=== PATIENT | female | born 1960 | race Hispanic/Latino ===

== ENCOUNTER 2022-02-20 16:28 | Inpatient (IN) | payer OTHER ==
[~2022-02-20] VITALS: Ht 152.4 cm; Wt 69.0 kg
[2022-02-20] MEDS ORDERED: KETOROLAC 15MG/ML VIAL (15MG/ML) IV ONE (17:00)
[2022-02-20] MEDS ORDERED: 0.9%NACL 1000ML 1,000 ML IV ONE (17:00)
[2022-02-20] MEDS ORDERED: ACETAMINOPHEN 500 MG TABLET PO ONE (17:00)
[2022-02-20 17:02] LABS: APPEARANCE,URINE CLEAR (CLEAR); BILIRUBIN,URINE SMALL (NEGATIVE); COLOR,URINE YELLOW (YELLOW); GLUCOSE, URINE (UA) NEGATIVE (NEGATIVE); KETONES,URINE 5 mg/dL (NEGATIVE); LEUKOCYTE ESTERASE ,URINE NEGATIVE (NEGATIVE); NITRATE,URINE NEGATIVE (NEGATIVE); OCCULT BLOOD,URINE MODERATE (NEGATIVE); PROTEIN,URINE 100 mg/dL (NEGATIVE)
[2022-02-20 17:15] LABS: BASOPHILS % (AUTO) 0.3 % (0.0-5.0); EOSINOPHILS % (AUTO) 0.1 % (0.0-8.0); HEMATOCRIT 32.1 % (36-48); LYMPHOCYTES % (AUTO) 5.8 % (21.0-51.0); MEAN CORPUSCULAR HEMOGLOBIN 24.4 pg (27.0-33.0); MEAN CORPUSCULAR HGB CONC 34.3 g/dL (32.0-36.0); MEAN CORPUSCULAR VOLUME 71.3 fL (79-99); MONOCYTES % (AUTO) 2.4 % (3.0-13.0); NEUTROPHILS % (AUTO) 90.9 % (40.0-77.0); PLATELET COUNT (AUTO) 141 K/uL (130-400); RED CELL DISTRIBUTION WIDTH 14.7 % (11.0-15.5); WHITE BLOOD COUNT (AUTO) 7.4 K/uL (4.8-10.8)
[2022-02-20 17:15] LABS: BACTERIA,URINE Few /HPF (None Seen); MUCUS,URINE Moderate LPF (None Seen); SQUAMOUS EPITHELIAL CELL,UR Few /HPF (0-2)
[2022-02-20 17:29] LABS: ALBUMIN 2.7 g/dL (3.5-5.0); CREATININE 0.9 mg/dL (0.5-1.5); POTASSIUM 3.3 mmol/L (3.5-5.1); TOTAL PROTEIN, SERUM 7.6 g/dL (6.0-8.3)
[2022-02-20] MEDS ORDERED: DOXYCYCLINE 100MG+NS 250ML IV SCH (18:30)
[2022-02-20] MEDS ORDERED: POTASSIUM CHLORIDE 20MEQ/100ML 100 ML IV PRN (19:00)
[2022-02-20] MEDS ORDERED: ONDANSETRON 4MG INJ IV PRN (19:00)
[2022-02-20] MEDS ORDERED: POTASSIUM CHLORIDE 10% ELIXIR 20 MEQ/15 ML UDCUP PO PRN (19:00)
[2022-02-20] MEDS ORDERED: LIDOCAINE HCL-MPF 1% 2ML VIAL IV PRN (19:00)
[2022-02-20] MEDS: CEFTRIAXONE 1G VIAL IV SCH (20:41)
[2022-02-20] MEDS: 0.9%NACL 1000ML 1,000 ML IV SCH (20:41)
[2022-02-20] MEDS: AZITHROMYCIN 500MG+NS 250ML IVPB SCH (20:41)
[2022-02-20] MEDS: KCL 20 MEQ ERTAB PO PRN ×2 (20:42→22:40)
[2022-02-21] MEDS: KCL 20 MEQ ERTAB PO PRN (00:42)
[2022-02-21] MEDS ORDERED: 0.9%NACL 1000ML 1,365 ML IV ONE (03:30)
[2022-02-21] MEDS: ACETAMINOPHEN 325 MG TAB PO PRN ×2 (05:22→16:23)
[2022-02-21] MEDS ORDERED: LEVOTHYROXINE 25 MCG TABLET PO SCH (06:30)
[2022-02-21 06:54] LABS: BASOPHILS % (AUTO) 0.3 % (0.0-5.0); MEAN CORPUSCULAR HEMOGLOBIN 24.1 pg (27.0-33.0); MEAN CORPUSCULAR HGB CONC 33.7 g/dL (32.0-36.0); MEAN CORPUSCULAR VOLUME 71.6 fL (79-99); MONOCYTES % (AUTO) 3.2 % (3.0-13.0); NEUTROPHILS % (AUTO) 89.9 % (40.0-77.0); PLATELET COUNT (AUTO) 125 K/uL (130-400); RED BLOOD CELL COUNT(AUTO) 3.77 MIL/uL (4.00-5.50); RED CELL DISTRIBUTION WIDTH 15.1 % (11.0-15.5)
[2022-02-21 07:13] LABS: HEMOGLOBIN A1C 6.6 % (4.0-6.0)
[2022-02-21 07:24] LABS: CREATININE 0.6 mg/dL (0.5-1.5); MAGNESIUM 1.4 mg/dL (1.80-2.40); PHOSPHORUS 2.2 mg/dL (2.5-4.9); POTASSIUM 3.6 mmol/L (3.5-5.1); THYROID STIMULATING HORMONE 1.25 uIU/mL (0.36-3.74)
[2022-02-21] MEDS: INSULIN HUMULIN R 100 UNIT/ML 3ML SQ SCH ×4 (07:30→21:00)
[2022-02-21] MEDS: FAMOTIDINE 20MG VIAL IV SCH (08:23)
[2022-02-21] MEDS: ENOXAPARIN SODIUM 40 MG/0.4 ML SYRINGE SQ SCH (08:23)
[2022-02-21] MEDS ORDERED: ROSU20TA31 PO (08:37)
[2022-02-21] MEDS ORDERED: LOSA100T58 PO (08:37)
[2022-02-21] MEDS ORDERED: METF-526 PO (08:37)
[2022-02-21] MEDS ORDERED: LEVO50CA4 PO (08:37)
[2022-02-21] MEDS ORDERED: AMLO-257 PO (08:37)
[2022-02-21] MEDS ORDERED: MAGNESIUM 2GM PREMIX 50ML 50 ML IV ONE (10:34)
[2022-02-21] MEDS: MAGNESIUM 2GM PREMIX 50ML 50 ML IV PRN (10:46)
[2022-02-21] MEDS ORDERED: SODIUM CHLORIDE 7% INHALATION 4 ML VIAL.NEB IH ONE (11:18)
[2022-02-21 11:35] VITALS: BP 98/58
[2022-02-21] MEDS: 0.9%NACL 1000ML 1,000 ML IV SCH (11:40)
[2022-02-21 16:25] VITALS: BP 126/63
[2022-02-21 17:14] LABS: CREATININE 0.6 mg/dL (0.5-1.5); MAGNESIUM 2.5 mg/dL (1.80-2.40); POTASSIUM 3.1 mmol/L (3.5-5.1)
[2022-02-21] MEDS: AZITHROMYCIN 500MG+NS 250ML IVPB SCH (18:37)
[2022-02-21] MEDS: CEFTRIAXONE 1G VIAL IV SCH (18:37)
[2022-02-21 20:00] VITALS: BP 109/44
[2022-02-21] MEDS: Rosuvastatin Calcium 20 MG PO SCH (21:00)
[2022-02-22] VITALS (7 sets, daily range): BP systolic 115–140; BP diastolic 47–69
[2022-02-22] MEDS: KCL 20 MEQ ERTAB PO PRN ×4 (01:54→09:30)
[2022-02-22] MEDS: 0.9%NACL 1000ML 1,000 ML IV SCH (04:20)
[2022-02-22 05:33] LABS: BASOPHILS % (AUTO) 0.3 % (0.0-5.0); EOSINOPHILS % (AUTO) 0.9 % (0.0-8.0); HEMATOCRIT 29.4 % (36-48); LYMPHOCYTES % (AUTO) 16.2 % (21.0-51.0); MEAN CORPUSCULAR HEMOGLOBIN 24.1 pg (27.0-33.0); MEAN CORPUSCULAR HGB CONC 32.7 g/dL (32.0-36.0); MEAN CORPUSCULAR VOLUME 73.7 fL (79-99); MONOCYTES % (AUTO) 4.5 % (3.0-13.0); NEUTROPHILS % (AUTO) 77.3 % (40.0-77.0); PLATELET COUNT (AUTO) 192 K/uL (130-400); RED BLOOD CELL COUNT(AUTO) 3.99 MIL/uL (4.00-5.50); RED CELL DISTRIBUTION WIDTH 15.6 % (11.0-15.5); WHITE BLOOD COUNT (AUTO) 7.6 K/uL (4.8-10.8)
[2022-02-22] MEDS: INSULIN HUMULIN R 100 UNIT/ML 3ML SQ SCH ×4 (05:49→19:46)
[2022-02-22 05:50] LABS: BILIRUBIN,DIRECT 0.2 mg/dL (0.0-0.3); CREATININE 0.6 mg/dL (0.5-1.5); MAGNESIUM 1.8 mg/dL (1.80-2.40); POTASSIUM 3.3 mmol/L (3.5-5.1)
[2022-02-22] MEDS: LEVOTHYROXINE 50 MCG TABLET PO SCH (06:08)
[2022-02-22] MEDS ORDERED: NON-FORMULARY MEDICATION 1 EACH (Levothyroxine Sodium (Levothyroxine) 50 MCG) PO SCH (07:30)
[2022-02-22] MEDS: AMLODIPINE 5 MG TAB PO SCH (09:00)
[2022-02-22] MEDS: LOSARTAN 100 MG TABLET PO SCH (09:00)
[2022-02-22] MEDS: MAGNESIUM 2GM PREMIX 50ML 50 ML IV PRN (09:30)
[2022-02-22] MEDS: FAMOTIDINE 20MG VIAL IV SCH (09:30)
[2022-02-22] MEDS: ENOXAPARIN SODIUM 40 MG/0.4 ML SYRINGE SQ SCH (09:31)
[2022-02-22] MEDS ORDERED: DOXYCYCLINE 100MG+NS 250ML IV SCH (19:30)
[2022-02-22] MEDS ORDERED: 0.9% NACL 250ML 250 ML ONE (19:40)
[2022-02-22] MEDS: Rosuvastatin Calcium 20 MG PO SCH (20:08)
[2022-02-23] MEDS: ACETAMINOPHEN 325 MG TAB PO PRN (01:35)
[2022-02-23 04:32] LABS: BASOPHILS % (AUTO) 0.5 % (0.0-5.0); EOSINOPHILS % (AUTO) 1.1 % (0.0-8.0); HEMATOCRIT 27.6 % (36-48); LYMPHOCYTES % (AUTO) 28.9 % (21.0-51.0); MEAN CORPUSCULAR HEMOGLOBIN 24.4 pg (27.0-33.0); MONOCYTES % (AUTO) 6.3 % (3.0-13.0); NEUTROPHILS % (AUTO) 62.1 % (40.0-77.0); PLATELET COUNT (AUTO) 211 K/uL (130-400); RED BLOOD CELL COUNT(AUTO) 3.73 MIL/uL (4.00-5.50); RED CELL DISTRIBUTION WIDTH 15.7 % (11.0-15.5); WHITE BLOOD COUNT (AUTO) 8.7 K/uL (4.8-10.8)
[2022-02-23 04:48] LABS: CREATININE 0.5 mg/dL (0.5-1.5); POTASSIUM 3.7 mmol/L (3.5-5.1)
[2022-02-23 05:02] VITALS: BP 118/57
[2022-02-23] MEDS: INSULIN HUMULIN R 100 UNIT/ML 3ML SQ SCH (05:14)
[2022-02-23] MEDS: KCL 20 MEQ ERTAB PO PRN (05:39)
[2022-02-23] MEDS: LEVOTHYROXINE 50 MCG TABLET PO SCH (05:39)
[2022-02-23] MEDS: 0.9%NACL 1000ML 1,000 ML IV SCH (05:44)
[2022-02-23] MEDS ORDERED: DOXY100T2 PO (07:21)
[2022-02-23 07:30] VITALS: BP 121/53
[2022-02-23] MEDS ORDERED: 0.9% NACL 250ML 250 ML ONE (08:21)
[2022-02-23] MEDS: ENOXAPARIN SODIUM 40 MG/0.4 ML SYRINGE SQ SCH (08:39)
[2022-02-23] MEDS: FAMOTIDINE 20MG VIAL IV SCH (08:40)
[2022-02-23] MEDS: AMLODIPINE 5 MG TAB PO SCH (08:40)
[2022-02-23] MEDS: LOSARTAN 100 MG TABLET PO SCH (08:41)
[2022-02-23] MEDS ORDERED: DOXYCYCLINE 100MG+NS 250ML IV SCH (09:00)
== END 2022-02-23 10:45 | disposition home or self-care (01) | DRG 194 ==
LOC: EDH 16:28 → EDHIP 16:29 → 4BH 02-21 11:58
PROVIDERS: ADMIT Hospitalist; ATTEND Hospitalist
DX: J18.9 Pneumonia, unspecified organism (principal); E87.1 Hypo-osmolality and hyponatremia; Z20.822 Contact with and (suspected) exposure to COVID-19; E03.9 Hypothyroidism, unspecified; E78.00 Pure hypercholesterolemia, unspecified; Z90.710 Acquired absence of both cervix and uterus; I10 Essential (primary) hypertension; E87.6 Hypokalemia; E11.9 Type 2 diabetes mellitus without complications; E86.0 Dehydration
CPT/HCPCS: 36415; 71045; 80048; 80053; 80076; 81001; 82948; 83036; 83605; 83735; 84100; 84443; 85025; 86308; 87040; 87071; 87205; 87635; 87804; 94640; C9803; G0378; J0456; J0696; J1650; J1885; J3475; J3490; J7030; J7050